=== PATIENT | female | born 1955 | race Caucasian/White ===

== ENCOUNTER 2021-01-21 06:52 | Day surgery (SDC) | payer BC ==
[~2021-01-21 06:52] MED LIST: Lactated Ringers 1,000 ML IV SCH; Lidocaine 1% 4 ML ONE; Lidocaine 1%/Sod Bicarbonate in NS 8.4% 1 ML Syringe IDERM PRN; Propofol 200 MG/20 ML SDV ONE; Sodium Chloride 0.9% 10 ML Syringe FLUSH PRN; fentaNYL 100 MCG/2 ML SDV ONE
--- NOTE | 2021-01-21 07:09 | PCM.PREANE ---
Preanesthetic Assessment - Procedure Proposed Procedure: colonoscopy - Anesthesia/Transfusion/Family Hx Anesthesia History: Prior Anesthesia Without Reaction Family History of Anesthesia Reaction: No Transfusion History: No Prior Transfusion(s) - Review of Systems General: No Symptoms Pulmonary: Cough (occasional) Cardiovascular: Dyspnea on Exertion Gastrointestinal: No Symptoms Neurological: No Symptoms Other: Reports: Depression - Physical Assessment NPO Status Date: 01/20/21 NPO Status Time: 18:00 Vital Signs: 130/69 51 95% 18 97.3 Height: 5 ft 8 in Weight: 124 kg ASA Class: 3 Mental Status: Alert & Oriented x3 Airway Class: Mallampati = 2 Dentition: Reports: Normal Dentition, Caries Thyro-Mental Finger Breadths: 3 Mouth Opening Finger Breadths: 3 ROM/Head Extension: Full Lungs: Clear to Auscultation, Normal Respiratory Effort Cardiovascular: Regular Rate, Regular Rhythm - Allergies Allergies/Adverse Reactions: Allergies Allergy/AdvReac Type Severity Reaction Status Date / Time No Known Allergies Allergy Verified 01/20/21 13:24 - Blood Blood Available: No - Anesthesia Plan Beta Sandro: Metoprolol Med Last Dose Date: 01/20/21 Med Last Dose Time: 07:00 - Acknowledgements Anesthesia Type Planned: MAC Pt an Appropriate Candidate for the Planned Anesthesia: Yes Alternatives and Risks of Anesthesia Discussed w Pt/Guardian: Yes Pt/Guardian Understands and Agrees with Anesthesia Plan: Yes PreAnesthesia Questionnaire HEENT History: Reports: Impaired Vision Cardiovascular History: Reports: High Cholesterol, Hypertension, Stents Respiratory History: Reports: COPD, Other (See Below) Other Respiratory History: emphysema Gastrointestinal History: Reports: None Genitourinary History: Reports: Other (See Below) Other Genitourinary History: hematuria COMMUNICATION ANALYST History: Reports: None Musculoskeletal History: Reports: None Neurological History: Reports: Other (See Below) Other Neuro History: memory difficulties Psychiatric History: Reports: Depression Endocrine/Metabolic History: Reports: Osteopenia Hematologic History: Reports: None Immunologic History: Reports: None Oncologic (Cancer) History: Reports: None Dermatologic History: Reports: None - Past Surgical History Head Surgeries/Procedures: Reports: None HEENT Surgical History: Reports: Tonsillectomy Cardiovascular Surgical History: Reports: Coronary Artery Stent Respiratory Surgical History: Reports: None GI Surgical History: Reports: None Female Surgical History: Reports: None Male Surgical History: Reports: None Endocrine Surgical History: Reports: None Neurological Surgical History: Reports: None Musculoskeletal Surgical History: Reports: None Oncologic Surgical History: Reports: None Dermatological Surgical History: Reports: Other (See Below) - SUBSTANCE USE Tobacco Use Status *Q: Former Tobacco User Tobacco Use Within Last Twelve Months: No Second Hand Smoke Exposure: Yes Days Per Week of Alcohol Use: 4 Number of Drinks Per Day: 2 Total Drinks Per Week: 8 Recreational Drug Use History: No - HOME MEDS Home Medications: Home Meds Aspirin [Halfprin] 81 mg PO BRK 07/29/15 [History] Clopidogrel [Plavix] 75 mg PO DAILY 07/29/15 [History] Ezetimibe [Zetia] 10 mg PO DAILY 07/29/15 [History] Isosorbide Mononitrate [Imdur] 30 mg PO DAILY 07/29/15 [History] Metoprolol Succinate [Toprol XL] 50 mg PO DAILY 07/29/15 [History] Ranolazine [Ranexa] 500 mg PO BID 07/29/15 [History] Furosemide [Lasix] 80 mg PO DAILY 01/20/21 [History] Nitroglycerin [Nitrostat] 0.4 mg SL ASDIRECTED PRN 01/20/21 [History] Rosuvastatin Calcium [Crestor] 40 mg PO DAILY 01/20/21 [History] buPROPion [Wellbutrin SR] 150 mg PO DAILY 01/20/21 [History] lisinopriL [Prinivil] 5 mg PO DAILY 01/20/21 [History] - CURRENT (IN HOUSE) MEDS Current Meds: Current Medications Lactated Ringer's (Ringers, Lactated) 1,000 mls @ 125 mls/hr IV ASDIRECTED SANDIE Stop: 01/21/21 23:00 Lidocaine/Sodium Bicarbonate (Lidocaine 1%/Sod Bicarbonate In Ns 8.4% 1 Ml Syringe) 0.25 ml IDERM ONETIME PRN PRN Reason: Prior to IV Start Stop: 01/21/21 18:00 Sodium Chloride (Sodium Chloride 0.9% 10 Ml Syringe) 10 ml FLUSH ASDIRECTED PRN PRN Reason: Keep Vein Open Stop: 01/21/21 18:00 Discontinued Medications Fentanyl (Fentanyl 100 Mcg/2 Ml Sdv) Confirm Administered Dose 100 mcg .ROUTE .STK-MED ONE Stop: 01/21/21 06:51 Lactated Ringer's (Ringers, Lactated) 1,000 mls @ 125 mls/hr IV ASDIRECTED SANDIE Lidocaine HCl (Xylocaine-Mpf 1%) Confirm Administered Dose 4 mls @ as directed .ROUTE .STK-MED ONE Stop: 01/21/21 06:50 Lidocaine/Sodium Bicarbonate (Lidocaine 1%/Sod Bicarbonate In Ns 8.4% 1 Ml Sy ringe) 0.25 ml IDERM ONETIME PRN PRN Reason: Prior to IV Start Propofol (Propofol 200 Mg/20 Ml Sdv) Confirm Administered Dose 200 mg .ROUTE .STK-MED ONE Stop: 01/21/21 06:51 Sodium Chloride (Sodium Chloride 0.9% 10 Ml Syringe) 10 ml FLUSH ASDIRECTED PRN PRN Reason: Keep Vein Open
--- NOTE | 2021-01-21 08:32 | PCM.OPNOTE ---
- General Post-Op/Procedure Note Date of Surgery/Procedure: 01/21/21 Operative Procedure(s): Colonoscopy with cold forceps biopsy Findings: 2 mm ascending polyp, 2 mm transverse polyp, 3 mm sigmoid polyp, diverticulosis Pre Op Diagnosis: Colon cancer screening Post-Op Diagnosis: Colon polyps x 3, diverticulosis Anesthesia Technique: MAC Primary Surgeon: Juan Renteria Anesthesia Provider: Thiago Ya EBL in mLs: 5 Complications: None Condition: Good Free Text/Narrative:: After the patient gave verbal and written consent she was placed on blood pressure and pulse ox monitoring. She was given IV sedation which she tolerated well. Colonoscope was inserted per rectum and advanced to the cecum without difficulty. The ileocecal valve and appendiceal orifice were imaged documenting cecal intubation. This colonoscope was slowly withdrawn. The mucosal surfaces were carefully examined. The prep was good. The views were good. The scope was slowly withdrawn and 3 small polyps were noted in the ascending transverse and sigmoid colon ranging from 2 to 3 mm. The polyps removed by cold forceps biopsy with good hemostasis at the end of the procedure. Diverticulosis was noted in the sigmoid colon. The colonoscope was then retroflexed in the rectum and the details are above There were no complications and the patient tolerated the procedure well.
--- NOTE | 2021-01-21 08:38 | PCM48HPAN ---
Post Anesthesia Note - EVALUATION WITHIN 48HRS OF ANESTHETIC Vital Signs in Normal Range: Yes Patient Participated in Evaluation: Yes Respiratory Function Stable: Yes Airway Patent: Yes Cardiovascular Function Stable: Yes Hydration Status Stable: Yes Pain Control Satisfactory: Yes Nausea and Vomiting Control Satisfactory: Yes Mental Status Recovered: Yes Vital Signs: Last Vital Signs Temp 97.3 F 01/21/21 07:10 Pulse 51 L 01/21/21 07:10 Resp 18 01/21/21 07:10 BP 130/69 01/21/21 07:10 Pulse Ox 95 01/21/21 07:10 0829 123/60 95% 54 16 97.9
[2021-01-21 09:20] VITALS: BP 128/63; PULSE 52
== END 2021-01-21 09:23 | disposition home or self-care (01) ==
LOC: JD.SDS 06:52
PROVIDERS: ATTEND Family Medicine
DX: Z12.11 Encounter for screening for malignant neoplasm of colon (principal); D12.2 Benign neoplasm of ascending colon; D12.3 Benign neoplasm of transverse colon; K57.30 Diverticulosis of large intestine without perforation or abscess without bleeding; I10 Essential (primary) hypertension; I25.10 Atherosclerotic heart disease of native coronary artery without angina pectoris; E78.2 Mixed hyperlipidemia; J43.2 Centrilobular emphysema; Z79.899 Other long term (current) drug therapy; Z79.82 Long term (current) use of aspirin; Z87.891 Personal history of nicotine dependence; Z68.41 Body mass index [BMI] 40.0-44.9, adult
CPT/HCPCS: 45380; J2704; J3010; J7120; 00812

== ENCOUNTER 2023-03-02 17:58 | Emergency (ER) | payer BC ==
[2023-03-02] MEDS ORDERED: Iopamidol 755 Mg/ML 100 ML Bottle IVPUSH ONE (18:57)
[2023-03-02] MEDS ORDERED: Sodium Chloride 0.9% 100 ML IV SCH (19:00)
[2023-03-02 19:16] LABS: ESTIMATED GFR 69 mL/min (>60)
[2023-03-02] MEDS ORDERED: predniSONE 10 MG Tab PO ONE (19:45)
[2023-03-02 20:07] VITALS: BP 113/73; PULSE 69
== END 2023-03-02 20:09 | disposition home or self-care (01) ==
LOC: JD.ED 17:58
DX: G51.0 Bell's palsy (principal); I10 Essential (primary) hypertension; J44.9 Chronic obstructive pulmonary disease, unspecified; E78.00 Pure hypercholesterolemia, unspecified; Z79.82 Long term (current) use of aspirin; Z79.02 Long term (current) use of antithrombotics/antiplatelets; Z79.899 Other long term (current) drug therapy
CPT/HCPCS: 36415; 70450; 70496; 70498; 80053; 82947; 83605; 84484; 85025; 85610; 85730; 86140; 93005; 99285; J3490; J7512; Q9967; 99284

== ENCOUNTER → 2024-10-12 | Day surgery (SDC) | payer MEDICARE, OTHER ==
[~2024-10-12] MED LIST changes: +Bupivacaine 0.25% 10 ML SDV ONE; +Dexamethasone 4 MG/ML 5 ML MDV ONE; +HYDROmorphone 0.5 MG/0.5 ML Syringe IVPUSH PRN; +Ketorolac 15 MG/ML SDV ONE; -Lactated Ringers 1,000 ML IV SCH; +Lactated Ringers 1,000 ML ONE; -Lidocaine 1% 4 ML ONE; -Lidocaine 1%/Sod Bicarbonate in NS 8.4% 1 ML Syringe IDERM PRN; +Midazolam 1 MG/ML 2 ML SDV ONE; +Ondansetron 4 MG/2 ML SDV IVPUSH PRN; +Ondansetron 4 MG/2 ML SDV ONE; +Ropivacaine 0.5% 5 MG/ML 30 ML SDV ONE; +Sodium Chloride 0.9% 10 ML Syringe FLUSH SCH; +ceFAZolin 2 GM Vial ONE; +dexmedeTOMIDine HCl 200 MCG/2 ML SDV ONE; +droPERidol 5 MG/2 ML SDV IVPUSH PRN; +ePHEDrine 50 MG/ML SDV ONE; +fentaNYL 100 MCG/2 ML SDV IVPUSH PRN
[2024-10-12] MEDS: Lactated Ringers 1,000 ML IV SCH (06:45)
[2024-10-12] MEDS: Morphine 8 MG, EPINEPHrine 0.3 MG, Cefuroxime 750 MG, Ketorolac 30 MG, Sodium Chloride ... PRN (11:43)
[2024-10-12] MEDS: Tranexamic Acid 1,000 MG/10 ML Vial ONE (11:44)
[2024-10-12] MEDS: VANCOmycin 1 GM SDV ONE (11:46)
[2024-10-12] MEDS: Lidocaine 1% 5 ML VIAL ONE (11:48)
[2024-10-12] MEDS: Triamcinolone Acetonide 40 MG/ML 1 ML SDV ONE (11:50)
[2024-10-12] MEDS: Acetaminophen/HYDROcodone 325-5 MG Tab PO PRN (12:13)
[2024-10-12 13:25] VITALS: BP 117/62; PULSE 78
== END | disposition home or self-care (01) ==
LOC: JD.SDS 06:30
PROVIDERS: ATTEND Orthopaedic Surgery
DX: M17.0 Bilateral primary osteoarthritis of knee (principal); I10 Essential (primary) hypertension; E78.00 Pure hypercholesterolemia, unspecified; I25.118 Atherosclerotic heart disease of native coronary artery with other forms of angina pectoris; E66.01 Morbid (severe) obesity due to excess calories; Z79.82 Long term (current) use of aspirin; Z79.899 Other long term (current) drug therapy; Z87.891 Personal history of nicotine dependence; Z68.41 Body mass index [BMI] 40.0-44.9, adult
CPT/HCPCS: 0055T; 20610; 27447; 64447; 73560; 97110; 97116; 97161; A9270; J0171; J0665; J0690; J0697; J1100; J1885; J2250; J2272; J2405; J2704; J2795; J3010; J3301; J7120; J3490

== ENCOUNTER 2024-10-20 15:09 | Emergency (ER) | payer MEDICARE, OTHER ==
[2024-10-20] MEDS ORDERED: Sodium Chloride 0.9% 10 ML Syringe FLUSH PRN (16:03)
[2024-10-20] MEDS: Sodium Chloride 0.9% 500 ML IV ONE (16:28)
[2024-10-20 17:07] LABS: BASOPHILS PERCENT AUTO 0.2 % (0.0-1.0); EOSINOPHILS ABSOLUTE AUTO 0.1 K/mm3 (0.0-0.4); EOSINOPHILS PERCENT AUTO 0.5 % (0.0-6.0); HEMATOCRIT 39.6 % (37.0-47.0); HEMOGLOBIN 13.1 gm/dl (12.0-16.0); IMMATURE GRAN ABSOLUTE AUTO 0.12 K/mm3 (0.00-0.05); IMMATURE GRAN PERCENT AUTO 0.9 % (0.0-0.4); LYMPHOCYTES ABSOLUTE AUTO 1.3 K/mm3 (1.0-4.8); LYMPHOCYTES PERCENT AUTO 9.8 % (24.0-44.0); MEAN CORPUSCULAR HEMOGLOBIN 29.1 pg (28.0-32.0); MEAN CORPUSCULAR HGB CONC 33.1 g/dl (32.0-36.0); MONOCYTES ABSOLUTE AUTO 1.3 K/mm3 (0.0-0.8); MONOCYTES PERCENT AUTO 10.2 % (0.0-8.0); NEUTROPHILS ABSOLUTE AUTO 10.4 K/mm3 (1.8-7.7); NEUTROPHILS PERCENT AUTO 78.4 % (41.0-71.0); PLATELET COUNT,PLT 349 K/mm3 (150-400)
[2024-10-20 17:32] LABS: A/G RATIO 0.9 (1-2); ALBUMIN 3.3 g/dl (3.4-5.0); ANION GAP 12.7 (5-15); CALCIUM 9.4 mg/dL (8.5-10.1); CREATININE 1.5 mg/dL (0.55-1.02); EST CRCL DRUG DOSING (CG) 32.2 mL/min; MAGNESIUM 2.3 mg/dL (1.8-2.4); POTASSIUM,K 3.7 mEq/L (3.5-5.1); PROTEIN TOTAL,TP 6.9 g/dl (6.4-8.2)
[2024-10-20 17:35] LABS: LACTIC ACID 1.4 mmol/L (0.4-2.0)
[2024-10-20 19:31] VITALS: BP 100/60; PULSE 66
== END 2024-10-20 19:31 | disposition home or self-care (01) ==
LOC: JD.ED 15:09
DX: I95.9 Hypotension, unspecified (principal); E86.0 Dehydration; R79.89 Other specified abnormal findings of blood chemistry; I10 Essential (primary) hypertension; J44.9 Chronic obstructive pulmonary disease, unspecified; E78.00 Pure hypercholesterolemia, unspecified; E66.9 Obesity, unspecified; Z79.82 Long term (current) use of aspirin; Z79.899 Other long term (current) drug therapy; Z68.41 Body mass index [BMI] 40.0-44.9, adult
CPT/HCPCS: 36415; 71045; 80053; 83605; 83735; 85025; 87040; 87428; 93005; 96360; 99284; J7030

== ENCOUNTER 2024-12-07 09:18 | Inpatient (IN) | payer MEDICARE, OTHER ==
[2024-12-07] MEDS ORDERED: Sodium Chloride 0.9% 10 ML Syringe FLUSH PRN (09:46)
[2024-12-07 10:24] LABS: BASOPHILS PERCENT AUTO 0.6 % (0.0-1.0); EOSINOPHILS ABSOLUTE AUTO 0.1 K/mm3 (0.0-0.4); EOSINOPHILS PERCENT AUTO 1.2 % (0.0-6.0); HEMATOCRIT 42.6 % (37.0-47.0); HEMOGLOBIN 14.1 gm/dl (12.0-16.0); IMMATURE GRAN ABSOLUTE AUTO 0.02 K/mm3 (0.00-0.05); IMMATURE GRAN PERCENT AUTO 0.4 % (0.0-0.4); LYMPHOCYTES ABSOLUTE AUTO 1.1 K/mm3 (1.0-4.8); LYMPHOCYTES PERCENT AUTO 21.5 % (24.0-44.0); MEAN CORPUSCULAR HEMOGLOBIN 28.7 pg (28.0-32.0); MEAN CORPUSCULAR HGB CONC 33.1 g/dl (32.0-36.0); MEAN CORPUSCULAR VOLUME 86.6 fl (83.0-99.0); MEAN PLATELET VOLUME 9.2 fl (9.4-12.3); MONOCYTES ABSOLUTE AUTO 0.5 K/mm3 (0.0-0.8); NEUTROPHILS ABSOLUTE AUTO 3.4 K/mm3 (1.8-7.7); NEUTROPHILS PERCENT AUTO 66.3 % (41.0-71.0); RED BLOOD CELL COUNT 4.92 M/mm3 (4.10-5.30); WHITE BLOOD CELL COUNT,WBC 5.11 K/mm3 (3.9-11.3)
[2024-12-07] MEDS: Sodium Chloride 0.9% 500 ML IV ONE ×2 (10:26→13:45)
[2024-12-07] MEDS: Pantoprazole 40 MG Vial IVPUSH ONE (10:31)
[2024-12-07 10:36] LABS: PLATELET COUNT,PLT 189 K/mm3 (150-400)
[2024-12-07] MEDS: Pantoprazole 80 MG in Sodium Chloride 0.9% 100 ML IV ONE (10:58)
[2024-12-07 11:17] LABS: ALBUMIN 3.2 g/dl (3.4-5.0); ANION GAP 12.2 (5-15); BILIRUBIN TOTAL 1.1 mg/dL (0.2-1.0); BUN/CREATININE RATIO 6.2 (14-18); CALCIUM 9.6 mg/dL (8.5-10.1); CREATININE 1.3 mg/dL (0.55-1.02); EST CRCL DRUG DOSING (CG) 38.6 mL/min; PROTEIN TOTAL,TP 6.4 g/dl (6.4-8.2)
[2024-12-07 11:21] LABS: POTASSIUM,K 2.2 mEq/L (3.5-5.1)
[2024-12-07 11:22] LABS: MAGNESIUM 2.1 mg/dL (1.8-2.4)
[2024-12-07] MEDS: Sodium Chloride 0.9% 45 ML IV SCH (11:52)
[2024-12-07] MEDS: Iopamidol 755 Mg/ML 100 ML Bottle IVPUSH ONE (11:52)
[2024-12-07 12:05] LABS: APPEARANCE,URINE SLT CLOUDY (Clear); BILIRUBIN,URINE NEGATIVE (Negative); COLOR,URINE YELLOW (Yellow); GLUCOSE,URINE NEGATIVE (Negative); KETONES,URINE NEGATIVE (Negative); LEUKOCYTE ESTERASE,URINE NEGATIVE (Negative); NITRITE,URINE NEGATIVE (Negative); OCCULT BLOOD,URINE 2+ (Negative); PROTEIN,URINE 3+ (Negative); UROBILINOGEN,URINE 0.2 (0.2-1.0)
[2024-12-07 12:15] LABS: BACTERIA,URINE FEW /hpf (FEW); MUCUS,URINE FEW /hpf (FEW); RBC,URINE 0-5 /hpf (0-5)
[2024-12-07] MEDS: Potassium Chloride 10 MEQ in Premix Bag 1 BAG IV SCH (12:57)
[2024-12-07] MEDS: Potassium Chloride 20 MEQ Tab.ER PO ONE (12:57)
[2024-12-07] MEDS: Sodium Chloride 0.9% 1,000 ML IV SCH (13:11)
[2024-12-07] MEDS ORDERED: Ondansetron 4 MG/2 ML SDV IV PRN (14:46)
[2024-12-07] MEDS ORDERED: Acetaminophen 325 MG Tab PO PRN (14:46)
[2024-12-07] MEDS: Pantoprazole 40 MG Vial IV SCH (20:04)
[2024-12-07 20:29] LABS: ANION GAP 12.2 (5-15); CALCIUM 9.2 mg/dL (8.5-10.1); EST CRCL DRUG DOSING (CG) 50.18 mL/min; POTASSIUM,K 3.2 mEq/L (3.5-5.1)
[2024-12-08 04:54] LABS: HEMATOCRIT 39.7 % (37.0-47.0); HEMOGLOBIN 12.9 gm/dl (12.0-16.0); MEAN CORPUSCULAR HEMOGLOBIN 28.2 pg (28.0-32.0); MEAN CORPUSCULAR HGB CONC 32.5 g/dl (32.0-36.0); MEAN CORPUSCULAR VOLUME 86.9 fl (83.0-99.0); MEAN PLATELET VOLUME 9.2 fl (9.4-12.3); PLATELET COUNT,PLT 174 K/mm3 (150-400); RED BLOOD CELL COUNT 4.57 M/mm3 (4.10-5.30); WHITE BLOOD CELL COUNT,WBC 4.71 K/mm3 (3.9-11.3)
[2024-12-08 05:28] LABS: ALBUMIN 2.9 g/dl (3.4-5.0); ANION GAP 12.8 (5-15); BILIRUBIN TOTAL 0.9 mg/dL (0.2-1.0); CALCIUM 9.1 mg/dL (8.5-10.1); EST CRCL DRUG DOSING (CG) 50.18 mL/min; POTASSIUM,K 2.8 mEq/L (3.5-5.1); PROTEIN TOTAL,TP 5.8 g/dl (6.4-8.2)
[2024-12-08] MEDS: Potassium Chloride 10 MEQ in Premix Bag 1 BAG IV SCH (07:34)
[2024-12-08] MEDS: D5 1/2 NS w/ 20 mEq/L KCl 1,000 ML IV SCH (09:15)
[2024-12-08] MEDS: Rosuvastatin 10 MG Tab PO SCH (09:16)
[2024-12-08] MEDS: Isosorbide Mononitrate 30 MG Tab.ER PO SCH (09:18)
[2024-12-08] MEDS: Donepezil 10 MG Tab PO SCH (09:18)
[2024-12-08] MEDS: buPROPion 150 MG Tab.SR PO SCH (09:19)
[2024-12-08] MEDS: Metoprolol Succinate 25 MG Tab.ER PO SCH (09:35)
[2024-12-08] MEDS ORDERED: Nitroglycerin 0.4 MG Tab.SL SL PRN (15:00)
[2024-12-08] MEDS: Clopidogrel 75 MG Tab PO SCH (16:06)
[2024-12-08 18:06] LABS: ANION GAP 12.9 (5-15); BUN/CREATININE RATIO 4.6 (14-18); CALCIUM 9.2 mg/dL (8.5-10.1); CREATININE 1.3 mg/dL (0.55-1.02); EST CRCL DRUG DOSING (CG) 38.6 mL/min; POTASSIUM,K 3.9 mEq/L (3.5-5.1)
[2024-12-08] MEDS: Calcium Carbonate 600 MG Tab PO SCH (21:42)
[2024-12-09 05:50] LABS: HEMATOCRIT 37.6 % (37.0-47.0); HEMOGLOBIN 11.9 gm/dl (12.0-16.0); MEAN CORPUSCULAR HEMOGLOBIN 28.1 pg (28.0-32.0); MEAN CORPUSCULAR HGB CONC 31.6 g/dl (32.0-36.0); MEAN CORPUSCULAR VOLUME 88.7 fl (83.0-99.0); MEAN PLATELET VOLUME 9.3 fl (9.4-12.3); PLATELET COUNT,PLT 160 K/mm3 (150-400); RED BLOOD CELL COUNT 4.24 M/mm3 (4.10-5.30); WHITE BLOOD CELL COUNT,WBC 4.25 K/mm3 (3.9-11.3)
[2024-12-09 07:00] LABS: ANION GAP 11.4 (5-15); BUN/CREATININE RATIO 8.2 (14-18); CALCIUM 9.1 mg/dL (8.5-10.1); CREATININE 1.1 mg/dL (0.55-1.02); EST CRCL DRUG DOSING (CG) 45.62 mL/min; PHOSPHORUS 3.2 mg/dL (2.6-4.7); POTASSIUM,K 3.4 mEq/L (3.5-5.1)
[2024-12-09] MEDS: Cholecalciferol (Vitamin D3) 25 MCG Tab PO SCH (09:45)
[2024-12-09] MEDS: Pantoprazole 40 MG Tab.CR PO SCH (09:45)
[2024-12-09] MEDS: Ezetimibe 10 MG Tab PO SCH (09:46)
[2024-12-09] MEDS: Potassium Chloride 20 MEQ Tab.ER PO ONE (09:46)
[2024-12-09] MEDS: Magnesium Oxide 400 MG Tab PO ONE (12:07)
[2024-12-09] MEDS: Sennosides/Docusate Sodium 50-8.6 MG Tab PO PRN (12:07)
[2024-12-09 13:47] VITALS: BP 104/72; PULSE 89
== END 2024-12-09 14:05 | disposition home or self-care (01) | DRG 640 ==
LOC: JD.ED 09:18 → JD.MS 14:32
PROVIDERS: ADMIT Internal Medicine; ATTEND Student in an Organized Health Care Education/Training Program
DX: K92.2 Gastrointestinal hemorrhage, unspecified (principal); E87.6 Hypokalemia; K25.4 Chronic or unspecified gastric ulcer with hemorrhage; R79.89 Other specified abnormal findings of blood chemistry; K26.4 Chronic or unspecified duodenal ulcer with hemorrhage; I25.10 Atherosclerotic heart disease of native coronary artery without angina pectoris; E78.00 Pure hypercholesterolemia, unspecified; E66.9 Obesity, unspecified; I10 Essential (primary) hypertension; H54.7 Unspecified visual loss; J44.9 Chronic obstructive pulmonary disease, unspecified; G30.0 Alzheimer's disease with early onset; F02.A0 Dementia in other diseases classified elsewhere, mild, without behavioral disturbance, psychotic disturbance, mood disturbance, and anxiety; R63.4 Abnormal weight loss; Z96.659 Presence of unspecified artificial knee joint; F15.90 Other stimulant use, unspecified, uncomplicated; R94.31 Abnormal electrocardiogram [ECG] [EKG]; Z66 Do not resuscitate; Z68.35 Body mass index [BMI] 35.0-35.9, adult; Z79.82 Long term (current) use of aspirin; Z79.899 Other long term (current) drug therapy; Z95.5 Presence of coronary angioplasty implant and graft; Z90.89 Acquired absence of other organs; Z79.02 Long term (current) use of antithrombotics/antiplatelets
CPT/HCPCS: 36415; 71045; 71045-26; 74175; 74175-26; 80048; 80053; 81001; 83690; 83735; 83880; 84100; 84484; 85018; 85025; 85027; 86850; 86900; 86901; 93005; 96361; 96365; 96366; 96368; 99285-25; A9270-GY; J2470; J3480; J7030; J7040; Q9967

== ENCOUNTER 2025-08-08 07:15 | Day surgery (SDC) | payer MEDICARE, OTHER ==
[2025-08-08] MEDS: Lactated Ringers 1,000 ML IV SCH (07:30)
[2025-08-08] MEDS ORDERED: Propofol 200 MG/20 ML SDV ONE ×2 (07:37→08:52)
[2025-08-08] MEDS ORDERED: Ketamine HCL/NACL, ISO-OSM 50 MG/5 ML Syringe ONE (07:37)
[2025-08-08] MEDS ORDERED: Ondansetron 4 MG/2 ML SDV ONE (07:40)
[2025-08-08] MEDS ORDERED: fentaNYL 100 MCG/2 ML SDV ONE (07:41)
[2025-08-08] MEDS ORDERED: ePHEDrine 50 MG/ML SDV ONE (08:52)
[2025-08-08] MEDS ORDERED: Phenylephrine 1% 10 MG/ML SDV ONE (08:52)
[2025-08-08] MEDS ORDERED: Ketorolac 30 MG/ML SDV ONE (09:13)
[2025-08-08] MEDS ORDERED: Lactated Ringers 1,000 ML ONE (09:13)
[2025-08-08] MEDS: Morphine 8 MG, EPINEPHrine 0.3 MG, Cefuroxime 750 MG, Ketorolac 30 MG, Sodium Chloride ... PRN (09:18)
[2025-08-08] MEDS ORDERED: Ondansetron 4 MG/2 ML SDV IVPUSH PRN (09:52)
[2025-08-08] MEDS ORDERED: fentaNYL 100 MCG/2 ML SDV IVPUSH PRN (09:52)
[2025-08-08] MEDS ORDERED: Ropivacaine 0.5% 5 MG/ML 30 ML SDV ONE (09:56)
[2025-08-08] MEDS: Acetaminophen/HYDROcodone 325-5 MG Tab PO PRN (11:33)
[2025-08-08 13:51] VITALS: BP 124/80; PULSE 70
== END 2025-08-08 13:50 | disposition home or self-care (01) ==
LOC: JD.SDS 07:15
PROVIDERS: ATTEND Orthopaedic Surgery
DX: M17.12 Unilateral primary osteoarthritis, left knee (principal); I25.10 Atherosclerotic heart disease of native coronary artery without angina pectoris; I11.0 Hypertensive heart disease with heart failure; I50.9 Heart failure, unspecified; E78.00 Pure hypercholesterolemia, unspecified; E66.01 Morbid (severe) obesity due to excess calories; Z68.37 Body mass index [BMI] 37.0-37.9, adult; Z79.82 Long term (current) use of aspirin; Z87.891 Personal history of nicotine dependence; Z79.899 Other long term (current) drug therapy
CPT/HCPCS: 0055T; 27447; 73560; 97116; 97161; A9270; C1713; C1776; J0169; J0690; J0697; J1885; J2272; J2371; J2405; J2704; J2795; J3010; J3373; J7120; 01402; 99100; J3490